=== PATIENT | female | born 1995 | race African-American/Black ===

== ENCOUNTER 2020-09-03 04:26 | Emergency (ER) | payer MEDICAID, SELFPAY ==
[2020-09-03 04:29] VITALS: BP 123/92; PULSE 77; RESP 18; TEMP 35.7; O2SAT 100
--- NOTE | 2020-09-03 05:05 | ED.FEMALEGU ---
HPI - Female Genitourinary General Chief complaint: Urogenital-Female Stated complaint: uti pain, 3rd week of period Time Seen by Provider: 09/03/20 04:42 History of Present Illness HPI Narrative: Dysuria, urinary frequency, lower abdominal pain for 6 days. Similar to past UTI symptoms. Tried AZO with temporary relief. Also says that she has been on her period for 3 weeks. Bleeding is light. No other symptoms. this is not unusual for her. Related Data Allergies Allergy/AdvReac Type Severity Reaction Status Date / Time No Known Allergies Allergy Mild Verified 09/03/20 04:31 Review of Systems Review of Systems: All systems reviewed & are unremarkable except as noted in HPI and below Constitutional: Constitutional: Denies chills and Denies fatigue Cardiovascular: Cardiovascular: Denies chest pain Respiratory: Respiratory: Denies dyspnea Gastrointestinal: Gastrointestinal: Reports abdominal pain, Denies constipation, Denies diarrhea, Denies nausea and Denies vomiting Genitourinary: Genitourinary: Reports abnormal vaginal bleeding, Denies hematuria, Reports nocturia, Reports dysuria, Reports flank pain and Denies urinary incontinence Neurologic: Denies numbness and Denies weakness [facility] Past Medical History Medical History Irregular periods Social History Social History Gender identity (if verbalized by the patient): Female Sexual Orientation (if Verbalized by the Patient): Straight or Heterosexual Exam Const: General: no acute distress Orientation/consciousness: patient oriented x3 HENMT: Head: normal to inspection Neck: Neck: normal visual inspection and no lymphadenopathy Chest: Chest palpation & inspection: no tenderness Resp: Effort & Inspection: normal respiratory effort Auscultation: clear to auscultation bilaterally, no rales, no rhonchi and no wheezes Cardio: Jugular venous distension: no JVD Rate: regular rate Rhythm: regular rhythm Heart sounds: no murmurs GI: Inspection: non-distended GI Palp: Yes Soft to palpation and No Tenderness to palpation present (GI) : General: Yes no CVA tenderness Skin: General skin exam: normal color Neuro: General: patient oriented x3 and moves all extremities Speech: normal speech Gait exam (Neuro): Normal gait present Extrem: General: normal to inspection Psych: Appearance: well kempt Affect: normal affect Course Vital Signs Vital signs: Vital Signs Temperature 35.7 C L 09/03/20 04:29 Pulse Rate 77 09/03/20 04:29 Respiratory Rate 18 09/03/20 04:29 Blood Pressure 123/92 H 09/03/20 04:29 Pulse Oximetry 100 09/03/20 04:29 Temperature 35.7 C L 09/03/20 04:29 Pulse Rate 77 09/03/20 04:29 Respiratory Rate 18 09/03/20 04:29 Blood Pressure 123/92 H 09/03/20 04:29 Pulse Oximetry 100 09/03/20 04:29 MDM - Female Genitourinary Differential Diagnosis Differential diagnosis: Likely urinary tract infection Medical Records Attestation: I reviewed the patient's medical records. Lab Data Attestation: I reviewed the patient's lab results. Labs: Lab Results 09/03/20 Range/Units 04:43 Urine Color Yellow (Yellow) Urine Appearance Cloudy H (Clear) Urine pH 7.0 (5.0-9.0) Ur Specific [place] 1.021 (1.001-1.035) Urine Protein 2+ H (Negative) mg/dL Urine Glucose (UA) Negative (Negative) mg/dL Urine Ketones Negative (Negative) mg/dL Ur Blood (Man) 3+ H (Negative) Urine Nitrate Negative (Negative) Urine Bilirubin Negative (Negative) Urine Urobilinogen 2.0 H (<2.0) mg/dL Leukocyte Esterase Rfl 3+ H (Negative) ANA/UL Urine RBC >75 H (0-2) /hpf Urine WBC >75 H /hpf Urine WBC Clumps Present H (None) /HPF Ur Squamous Epith Cells Many H (Few) /hpf Urine Bacteria Trace /hpf Urine Mucus Rare /lpf UCG Bedside Result Negative
[2020-09-03 05:14] LABS: Add Urine Microscopic? YES; Appearance Urine Cloudy (Clear); Bacteria Urine Trace /hpf; Bilirubin Urine Negative (Negative); Blood Urine 3+ (Negative); Color Urine Yellow (Yellow); Glucose Urine UA Negative (Negative); Ketones Urine Negative (Negative); Leukocyte Esterase Ur 3+ LEU/UL (Negative); Mucus Urine Rare /lpf; Nitrate Urine Negative (Negative); Protein Urine 2+ mg/dL (Negative); RBC Urine >75 /hpf (0-2); Specific Grav Ur 1.021 (1.001-1.035); Squamous Epithelial Cell Urine Many /hpf (Few); WBC Clumps Urine Present /HPF; WBC Urine >75 /hpf
[2020-09-03 05:55] VITALS: BP 124/78; PULSE 72; RESP 18; TEMP 36.7; O2SAT 98
[2020-09-03] MEDS: PHENAZOPYRIDINE HCL 100 MG TABLET 200 MG PO (05:55)
[2020-09-03] MEDS: NITROFURANTOIN MONOHYD MACROCR 100 MG CAP PO (05:55)
== END 2020-09-03 05:56 | disposition home or self-care (01) ==
PROVIDERS: Emergency Provider Emergency Medicine
DX: N39.0 Urinary tract infection, site not specified (principal)
CPT/HCPCS: 81001; 81025; 87077; 87086; 87088; 87186; 99283; A9270

== ENCOUNTER 2022-05-29 15:08 | Outpatient (RCR) | payer OTHER, SELFPAY ==
[2022-05-29 16:11] VITALS: BP 107/64; PULSE 96
== END 2022-08-27 23:59 | disposition home or self-care (01) ==
LOC: ANHOBOP 15:08
PROVIDERS: Visit Provider Obstetrics & Gynecology
DX: O36.8130 Decreased fetal movements, third trimester, not applicable or unspecified (principal); Z3A.37 37 weeks gestation of pregnancy
CPT/HCPCS: 59025

== ENCOUNTER 2022-06-22 09:15 | Inpatient (IN) | payer OTHER, SELFPAY ==
[2022-06-22] VITALS (77 sets, daily range): BP systolic 80–142; BP diastolic 43–106; PULSE 80–113; RESP 16; TEMP 36.1–36.9; O2SAT 85–100; BMI 44.9
[2022-06-22 10:11] LABS: Basophils Absolute Auto 0.1 K/mm3 (0.0-0.1); Basophils Percent Auto 0.9 % (0.2-1.2); Eosinophils Absolute Auto 0.1 K/mm3 (0-0.3); Hemoglobin 11.9 g/dL (12.0-15.0); Immature Granulocyte Absolute 0.03 K/mm3 (0.00-0.031); Immature Granulocyte Percent A 0.3 % (0-0.5); Lymphocytes Absolute Auto 2.23 K/mm3 (0.9-3.2); Lymphocytes Percent Auto 24.5 % (18.3-44.2); Mean Corpuscular HGB Conc 33.1 g/dl (32-36); Mean Corpuscular Hemoglobin 28.7 pg (26-34); Mean Corpuscular Volume 86.7 fl (80-100); Mean Platelet Volume 11.3 fl (7.4-10.4); Monocytes Absolute Auto 0.8 K/mm3 (0.1-0.6); Monocytes Percent Auto 8.4 % (2.6-8.5); Neutrophils Absolute Auto 5.9 K/mm3 (1.3-6.7); Neutrophils Percent Auto 64.9 % (45.5-73.1); Platelet Count Result 254 k/mm3 (150-375); Red Blood Count 4.15 M/mm3 (4.2-5.4); Red Cell Distribution Width 14.1 % (11.5-14.5); White Blood Count 9.1 K/mm3 (4.5-10.0)
[2022-06-22] MEDS: LACTATED RINGERS 1,000 ML 125 ML IV CONT ×4 (10:13→23:12)
[2022-06-22] MEDS: AMPICILLIN 2 GM/NS 100 ML 2 GM/100 ML BAG IVPB (10:14)
[2022-06-22] MEDS: OXYTOCIN 30 UNITS/NS 500 ML 30 UNITS/500 ML BAG 6 UNITS IV CONT (10:14)
--- NOTE | 2022-06-22 10:29 | PM.IMHP ---
H&P: HPI History of Present Illness Date/Time: 06/22/22 10:29 Chief Complaint: Postdates for induction of labor with positive group B strep Narrative: this is a 26-year-old 1 para 0 whose last menstrual period was , EDC 06/14/2022, presents at 41 weeks gestation for induction of labor. She is positive group B strep. She is admitted for induction secondary to post dates. The has otherwise been complicated PMFSH Past Medical History Medical History Irregular periods Family History Family History Grandparent Diabetes mellitus Hypertension Cerebrovascular accident Grandparent Hypertension Father Diabetes mellitus Social History Social History Substance use: never Gender identity (if verbalized by the patient): Female Sexual Orientation (if Verbalized by the Patient): Straight or Heterosexual Spiritual care concerns: No Meds Home Medications and Allergies Home Medications Medication Instructions Recorded Confirmed Type prenat.vits,shona,[id number] 1 tablet PO DAILY 05/18/22 05/18/22 History Allergies Allergy/AdvReac Type Severity Reaction Status Date / Time No Known Allergies Allergy Mild Verified 09/03/20 04:31 Vital Signs Vital Signs - 24 hr 06/22/22 09:40 06/22/22 09:45 Pulse Rate 97 102 H Blood Pressure 120/66 125/73 Exam Const: General: cooperative, healthy appearing and comfortable Nutritional Appearance: average body habitus Orientation/consciousness: oriented to person, oriented to place and oriented to time Limitations: no limitations Chest: Chest palpation & inspection: normal inspection of the chest Resp: Effort & Inspection: normal respiratory effort Cardio: Rate: regular rate Rhythm: regular rhythm Heart sounds: S1 normal heart sound present and S2 normal heart sound present GI: Inspection: normal to inspection : External Female Exam: normal external appearance Speculum Exam - Vagina: normal appearance of the vagina Speculum Exam - Cervix: normal appearance of the cervix ( cervix 1/50%. FHTs reassuring) Bimanual exam- vagina & uterus: enlarged H&P: Results Labs Labs: Short CBC 06/22/22 Range/Units 09:53 WBC 9.1 (4.5-10.0) K/mm3 Hgb 11.9 L (12.0-15.0) g/dL Hct 36.0 L (37.0-47.0) % Plt Count 254 (150-375) k/mm3 Assessment and Plan Assessment and plan (1) Post-dates : Code(s): O48.0 - Post-term Status: Acute (2) Group beta Strep positive: Code(s): B95.1 - Streptococcus, group B, as the cause of diseases classified elsewhere Status: Acute Plan medical induction of labor. Group B strep prophylaxis. Spontaneous vaginal delivery is expected. She is an epidural candidate
[2022-06-22 10:32] LABS: Amphetamine Screen Urine Negative (Negative); Barbiturate Screen Urine Negative (Negative); Benzodiazepines Screen Urine Negative (Negative); Cannabinoid Screen Urine Positive (Negative); Cocaine Screen Urine Negative (Negative); Methadone Screen Urine Negative (Negative); Opiate Screen Urine Negative (Negative); Phencyclidine Screen Urine Negative (Negative)
--- NOTE | 2022-06-22 11:44 | PM.OBPNLAB ---
Pain Control Date/time seen: 06/22/22 11:44 Pain control: tolerating well Pelvic Exam Dilation (cm): 2 Effacement (%): 75 station: -1 Amniotic membrane status: Ruptured Comments: iupc and fse applied
--- NOTE | 2022-06-22 12:36 | WPDANESEPP ---
Anes - Eval Pre Procedure Procedure: Labor epidural Date/Time: 06/22/22 12:36 Surgeon: Colin Guardado Preop Diagnosis: Pain during labor Pre Op Diagnosis: iol Patient Data Age: 26 Gender: F Height: 1.7 m Weight: 130 kg Last Vital Signs Temp 36.1 C L 06/22/22 09:44 Pulse 98 06/22/22 12:31 BP 129/106 H 06/22/22 12:31 O2 Del Method Room Air 06/22/22 10:39 Allergies Allergy/AdvReac Type Severity Reaction Status Date / Time No Known Allergies Allergy Mild Verified 09/03/20 04:31 Home Medications Medication Instructions Recorded Confirmed Type prenat.vits,shona,ryl-[id number] 1 tablet PO DAILY 05/18/22 05/18/22 History Laboratory Tests 06/22/22 06/22/22 06/22/22 09:53 09:53 09:53 WBC 9.1 K/mm3 K/mm3 (4.5-10.0) RBC 4.15 M/mm3 L M/mm3 (4.2-5.4) Hgb 11.9 g/dL L g/dL (12.0-15.0) Hct 36.0 % L % (37.0-47.0) MCV 86.7 fl fl (80-100) MCH 28.7 pg pg (26-34) MCHC 33.1 g/dl g/dl (32-36) RDW 14.1 % % (11.5-14.5) Plt Count 254 k/mm3 k/mm3 (150-375) MPV 11.3 fl H fl (7.4-10.4) Immature Gran % (Auto) 0.3 % % (0-0.5) Neut % (Auto) 64.9 % % (45.5-73.1) Lymph % (Auto) 24.5 % % (18.3-44.2) [place] % (Auto) 8.4 % % (2.6-8.5) Eos % (Auto) 1.0 % % (0-4.4) Baso % (Auto) 0.9 % % (0.2-1.2) Lymph # (Auto) 2.23 K/mm3 K/mm3 (0.9-3.2) [place] # (Auto) 0.8 K/mm3 H K/mm3 (0.1-0.6) Eos # (Auto) 0.1 K/mm3 K/mm3 (0-0.3) Baso # (Auto) 0.1 K/mm3 K/mm3 (0.0-0.1) Abs Immat Gran (auto) 0.03 K/mm3 K/mm3 (0.00-0.031) Absolute Neuts (auto) 5.9 K/mm3 K/mm3 (1.3-6.7) Absolute Nucleated RBC 0.0 K/mm3 K/mm3 (0.0-0.012) Nucleated RBC % 0.0 % % (0.0-0.2) Urine Opiates Screen Urine Methadone Screen Ur Barbiturates Screen Ur Phencyclidine Scrn Ur Amphetamine Screen U Benzodiazepines Scrn Urine Cocaine Screen U Cannabinoids Screen RPR Pending Blood Type O Positive Antibody Screen Negative 06/22/22 09:58 WBC RBC Hgb Hct MCV MCH MCHC RDW Plt Count MPV Immature Gran % (Auto) Neut % (Auto) Lymph % (Auto) [place] % (Auto) Eos % (Auto) Baso % (Auto) Lymph # (Auto) [place] # (Auto) Eos # (Auto) Baso # (Auto) Abs Immat Gran (auto) Absolute Neuts (auto) Absolute Nucleated RBC Nucleated RBC % Urine Opiates Screen Negative (Negative) Urine Methadone Screen Negative (Negative) Ur Barbiturates Screen Negative (Negative) Ur Phencyclidine Scrn Negative (Negative) Ur Amphetamine Screen Negative (Negative) U Benzodiazepines Scrn Negative (Negative) Urine Cocaine Screen Negative (Negative) U Cannabinoids Screen Positive A (Negative) RPR Blood Type Antibody Screen Patient hx anesthesia problems: none Family hx anesthesia problems: none Results Review: All pre-operative results and documents have been reviewed as part of the pre-operative evaluation. [facility] Past Medical History Medical History Irregular periods Family History Family History Grandparent Diabetes mellitus Hypertension Cerebrovascular accident Grandparent Hypertension Father Diabetes mellitus Social History Social History Smoking status: Never smoker Second hand tobacco smoke exposure: No Substance use: never Gender identity (if verbalized by the patient): Fem
[2022-06-22] MEDS: AMPICILLIN 1 GM/NS 50 ML 1 GM/50 ML BAG IVPB ×3 (14:00→22:13)
--- NOTE | 2022-06-22 16:08 | PM.OBPNLAB ---
Pain Control Date/time seen: 06/22/22 16:08 Pain control: tolerating well Pelvic Exam Dilation (cm): 3 Effacement (%): 75 station: -1 Amniotic membrane status: Ruptured
[2022-06-22] MEDS: SODIUM CHLORIDE 0.9% IV 300 ML 600 ML I-UTERINE (16:38)
[2022-06-23] VITALS (173 sets, daily range): BP systolic 78–134; BP diastolic 44–110; PULSE 92–124; RESP 15–30; TEMP 36.3–37.1; O2SAT 92–100
[2022-06-23] MEDS: SODIUM CHLORIDE 0.9% IV 1,000 ML 150 ML I-UTERINE (00:56)
[2022-06-23] MEDS: diphenhydrAMINE HCl INJ 50 MG/ML VIAL 25 MG IV PUSH (01:17)
[2022-06-23] MEDS: AMPICILLIN 1 GM/NS 50 ML 1 GM/50 ML BAG IVPB ×3 (02:15→10:08)
[2022-06-23] MEDS: LACTATED RINGERS 1,000 ML 125 ML IV CONT (04:13)
--- NOTE | 2022-06-23 07:19 | PM.OBPNLAB ---
Pain Control Date/time seen: 06/23/22 07:19 Pelvic Exam Dilation (cm): 6 Effacement (%): 75 station: -1 Amniotic membrane status: Ruptured
[2022-06-23 07:21] LABS: Rapid Plasma Reagin Non-Reactive (NonReactive)
--- NOTE | 2022-06-23 10:47 | P.PNOB_ITS ---
Pain Control Date/time seen: 06/23/22 10:47 Pain control: tolerating well Comments: Cervix not changing. Variables continued to be present. Patient offered low- transverse section. Risks and benefits reviewed in full Pelvic Exam Dilation (cm): 6 Effacement (%): 75 station: -1 Amniotic membrane status: Ruptured
--- NOTE | 2022-06-23 11:04 | WPDANESEPPF ---
Anes - Initial Pre Proc Eval Procedure: Operation Date: 06/23/22 11:30 Proposed Procedures p Section - Aleksander Guardado MD Date/Time: 06/23/22 11:04 Surgeon: Aleksander Guardado MD Pre Op Diagnosis: iol Patient Data Age: 26 Gender: F Height: 1.7 m Weight: 130 kg Last Vital Signs Temp 97.9 F 06/23/22 09:00 Pulse 95 06/23/22 07:30 Resp 16 06/23/22 06:00 BP 128/88 06/23/22 07:30 Pulse Ox 100 06/23/22 10:05 O2 Del Method Room Air 06/22/22 10:39 Allergies Allergy/AdvReac Type Severity Reaction Status Date / Time No Known Allergies Allergy Mild Verified 09/03/20 04:31 Home Medications Medication Instructions Recorded Confirmed Type prenat.vits,shona,oaa-wcgt-uvman 1 tablet PO DAILY 05/18/22 05/18/22 History hydrocodone 5 mg-acetaminophen 325 1 tablet PO Q4H PRN pain #30 tabs 06/24/22 Rx mg tablet Laboratory Tests 06/22/22 06/22/22 09:53 09:53 RPR Non-reactive (NonReactive) Antibody Screen Negative Patient hx anesthesia problems: none Family hx anesthesia problems: none Results Review: All pre-operative results and documents have been reviewed as part of the pre-operative evaluation. [facility] Past Medical History Medical History Irregular periods Family History Family History Grandparent Diabetes mellitus Hypertension Cerebrovascular accident Grandparent Hypertension Father Diabetes mellitus Social History Social History Smoking status: Never smoker Second hand tobacco smoke exposure: No Substance use: never Gender identity (if verbalized by the patient): Female Sexual Orientation (if Verbalized by the Patient): Straight or Heterosexual Spiritual care concerns: No Anes - Eval Final PreProcedure Day of Procedure 06/23/22 11:04 Patient weight: morbidly obese Heart: regular rate and rhythm Lungs: clear to auscultation Airway: Mallampati scale class II Neurological: alert and oriented Last oral intake: >/= 8 hours ASA classification: III Emergent: no Anesthetic plan: proceed Anesthesia type and monitoring: regional epidural (back up GA if needed; discussed with the patient) and standard monitoring Results Review: All pre-operative results and documents have been reviewed as part of the pre-operative evaluation. Informed Consent: The patient's anesthetic plan and its attendant risks and benefits were discussed with the patient/family/POA. Questions were solicited and answers provided to the satisfaction of the patient/family/POA.
--- NOTE | 2022-06-23 12:14 | W.PM.PROC2 ---
Procedure Note - Detailed Date of Procedure 06/23/22 Pre-op Diagnosis iol/postdates /failure to progress Post-op Diagnosis Same Procedure Performed Primary low-transverse section Surgeon Aleksander Guardado MD Anesthesia Spinal Indications This is a 26-year-old female at 41 and half weeks gestation with failed induction. She got to 6cm and despite adequate contractions shown by intrauterine pressure catheter she did not change beyond 6 and had variable and late decelerations. Findings Male infant 7lb 4oz Apgars 7 and 9 at 1 and 5minutes respectively. Normal-appearing uterus ovaries and tubes were seen. Description of Procedure Patient was prepped draped in normal sterile fashion placed in the supine position. Under excellent spinal anesthetic the abdomen was entered in Pfannenstiel fashion progressive layers to the fascia. Fascia incised midline carried in upward outward fashion bilaterally. Underlying muscles sharply dissected. Parietal peritoneum 0 by Marisol clamps and by sharp dissection carried superiorly and inferiorly down the bladder. Bladder blade placed bladder flap formed bladder blade returned. A low-transverse incision made the head delivered in CHRISTOPHER position. Anterior posterior shoulder delivered spontaneously. Cord clamped x2 and cut. Infant passed off the table with an excellent cry. Placenta delivered intact manually. Uterus delivered from abdomen wrapped in a moist towel. After assuring no membranes or debris remained in the uterus, the uterus was closed with continuous running 0 Vicryl from lateral edge to lateral edge followed by a 2nd imbricating running locking Vicryl from lateral edge to edge. Hemostasis was assured. Ovaries and tubes appeared within normal limits the laps removed and accounted for the fascia was inspected. The uterine incision was packed and 1 last time before the fascia was closed and lap counts were normal. The fascia closed with continuous running 0 Vicryl from lateral edge to midline bilaterally. Irrigation subcutaneous layer and the skin closed with 4 Monocryl and glue. Patient went to recovery in satisfactory condition. All sponge, needle, instrument counts were correct. There were no immediate complications noted Estimated Blood Loss 450 Drains No Packing No Pathology None sent Complications No immediate complications Condition Stable Disposition PACU
[2022-06-23] MEDS: fentaNYL CITRATE INJ (*CRX) 100 MCG/2 ML VIAL 50 MCG IV PUSH (13:25)
--- NOTE | 2022-06-23 14:40 | OBPPTRN ---
Patient transferred to post room #291 via stretcher. Support person present. Oriented to unit, room, information board, rooming in, admission packet and security measures. Patient verbalizes understanding.
--- NOTE | 2022-06-23 15:00 | PC.NURSE ---
Breast pump provided due to maternal preference. Instructions given on cleaning, care, usage, that there should be no pain, pumping schedule for milk production, collection, and storage of human milk. Patient was assessed for correct placement, flange size, to pump for comfort and nipple stretching/stimulation for adequate milk production every 3 hours (8 times in 24 hours). Mother voiced understanding of the education shared along with mom and baby guide for additional resource information.
[2022-06-23] MEDS: KETOROLAC 30 MG/ML VIAL (*BKC) IV PUSH (15:27)
[2022-06-23] MEDS: DEXTROSE 5%/0.45% SOD CHL 1,000 ML 125 ML IV CONT (17:19)
[2022-06-23] MEDS: HYDROcodone/acetaminophen (*CRX) 5-325 MG TABLET 1 TAB PO ×2 (18:44→23:01)
[2022-06-23] MEDS: IBUPROFEN 600 MG TABLET PO (21:40)
[2022-06-23] MEDS: LANOLIN (LANSINOH) 7.5 GM CREAM 2 APPLIC (21:40)
[2022-06-24] MEDS: HYDROcodone/acetaminophen (*CRX) 5-325 MG TABLET 1 TAB PO ×5 (03:05→20:45)
[2022-06-24 03:15] VITALS: BP 127/88; PULSE 104; RESP 18; TEMP 37.1; O2SAT 97
[2022-06-24 04:19] LABS: Basophils Absolute Auto 0.1 K/mm3 (0.0-0.1); Basophils Percent Auto 0.5 % (0.2-1.2); Eosinophils Absolute Auto 0.1 K/mm3 (0-0.3); Eosinophils Percent Auto 0.5 % (0-4.4); Hematocrit 34.6 % (37.0-47.0); Hemoglobin 11.1 g/dL (12.0-15.0); Immature Granulocyte Absolute 0.05 K/mm3 (0.00-0.031); Immature Granulocyte Percent A 0.3 % (0-0.5); Lymphocytes Percent Auto 14.8 % (18.3-44.2); Mean Corpuscular HGB Conc 32.1 g/dl (32-36); Mean Corpuscular Hemoglobin 28.5 pg (26-34); Mean Corpuscular Volume 88.9 fl (80-100); Mean Platelet Volume 11.4 fl (7.4-10.4); Monocytes Absolute Auto 1.3 K/mm3 (0.1-0.6); Monocytes Percent Auto 8.7 % (2.6-8.5); Neutrophils Absolute Auto 11.2 K/mm3 (1.3-6.7); Neutrophils Percent Auto 75.2 % (45.5-73.1); Platelet Count Result 245 k/mm3 (150-375); Red Blood Count 3.89 M/mm3 (4.2-5.4); Red Cell Distribution Width 14.4 % (11.5-14.5); White Blood Count 14.9 K/mm3 (4.5-10.0)
--- NOTE | 2022-06-24 05:14 | P.PNOB_ITS ---
OB - PN: Subj Subjective Date/time seen: 06/24/22 05:14 Patient comments: no complaints and pain well controlled baby status: doing well and nursing well OB - PN: Obj Data Labs CBC & Chem 7: 06/24/22 03:11 Labs: Laboratory Results - last 24 hr 06/22/22 06/24/22 09:53 03:11 WBC 14.9 H RBC 3.89 L Hgb 11.1 L Hct 34.6 L MCV 88.9 MCH 28.5 MCHC 32.1 RDW 14.4 Plt Count 245 MPV 11.4 H Immature Gran % (Auto) 0.3 Neut % (Auto) 75.2 H Lymph % (Auto) 14.8 L [place] % (Auto) 8.7 H Eos % (Auto) 0.5 Baso % (Auto) 0.5 Lymph # (Auto) 2.20 [place] # (Auto) 1.3 H Eos # (Auto) 0.1 Baso # (Auto) 0.1 Abs Immat Gran (auto) 0.05 H Absolute Neuts (auto) 11.2 H Absolute Nucleated RBC 0.0 Nucleated RBC % 0.0 RPR Non-reactive OB - PN A/P Plan day: 1 Plan: routine care Time Spent With Patient Time: Total time spent is greater than 50% in coordination of care (as documented) at patient's floor/unit and/or counseling patient: Time with patient: less than 15 minutes Exam Const: General: cooperative, healthy appearing and comfortable GI: Inspection: normal to inspection, incision (Clean dry and intact) and obesity Auscultation: normal bowel sounds : Speculum Exam - Cervix: Other cervical findings present ( bleeding light)
--- NOTE | 2022-06-24 05:15 | PM.DS ---
DS: Admitting Diagnosis Discharge Date 06/25/2022 Admitting Diagnosis postdates /positive group B strep DS: Discharge Diagnosis Discharge Diagnosis (1) Group beta Strep positive: Code(s): B95.1 - Streptococcus, group B, as the cause of diseases classified elsewhere Status: Acute (2) Post-dates : Code(s): O48.0 - Post-term Status: Acute DS: Summary Hospital Course Reason for hospitalization: patient was admitted for induction of labor at 41 and half weeks gestation Hospital Course: she underwent unsuccessful medical induction of labor. She was adequately Diaz prophylaxed for group B strep. She underwent low-transverse section 06/23/2022. Her 48hour course was unremarkable. She remained afebrile. She was up, voiding without difficulty, ambulating, eating regular diet, and generally without complaints. Time Spent with Patient Time attestation: Total time spent providing and/or coordinating discharge services: DS: Data Data Completed and Pending Labs on day of discharge: Labs from last 24 hours 06/24/22 06/22/22 03:11 09:53 WBC 14.9 H RBC 3.89 L Hgb 11.1 L Hct 34.6 L MCV 88.9 MCH 28.5 MCHC 32.1 RDW 14.4 Plt Count 245 MPV 11.4 H Immature Gran % (Auto) 0.3 Neut % (Auto) 75.2 H Lymph % (Auto) 14.8 L [place] % (Auto) 8.7 H Eos % (Auto) 0.5 Baso % (Auto) 0.5 Lymph # (Auto) 2.20 [place] # (Auto) 1.3 H Eos # (Auto) 0.1 Baso # (Auto) 0.1 Abs Immat Gran (auto) 0.05 H Absolute Neuts (auto) 11.2 H Absolute Nucleated RBC 0.0 Nucleated RBC % 0.0 RPR Non-reactive Discharge Plan Discharge Attending physician on discharge: Aleksander Chambers Discharging Clinician: Aleksander Chambers Activity: may shower, no straining, may drive after 2 weeks and pelvic rest Diet: heart healthy Wound Care Instructions: follow printed instructions Follow-up/Referrals: Aleksander Chambers MD [Physician] - Discharge Medications: New hydrocodone-acetaminophen 5-325 mg tablet 1 tablet PO Q4H PRN (Reason: pain) Qty: 30 0RF No Action #2 Tablet 1 tablet PO DAILY Date of admission: 06/22/22 09:15 Primary Care Provider: PHYSICIAN,[employer] Admitting Provider: Aleksander Chambers Attending physician on admission: Aleksander Chambers Condition: Stable
[2022-06-24] MEDS: IBUPROFEN 600 MG TABLET PO ×2 (05:57→12:56)
[2022-06-24 06:56] VITALS: BP 124/81; PULSE 117; RESP 16; TEMP 36.7
[2022-06-24] MEDS: MULTIVIT/MIN/PREN/FOL AC/IRON TABLET 1 TAB PO (08:38)
[2022-06-24] MEDS: DOCUSATE SODIUM 100 MG CAPSULE PO ×2 (08:38→16:28)
[2022-06-24 08:40] VITALS: PULSE 107
--- NOTE | 2022-06-24 10:15 | WPDANLDNPN2 ---
Anes-Prog Note L&D-Neuraxial Date/Time: 06/24/22 10:15 Neuraxial medications: epidural PF morphine Opiod-related complaints: none Patient feedback: Patient satisfied with post-operative pain management.
--- NOTE | 2022-06-24 10:16 | WPDANESPN ---
Anes - Prog Note Post-Op Date/Time: 06/24/22 10:16 Cardiovascular status: normal Respiratory status: normal Airway patency: baseline Mental status: baseline Post-Op hydration status: normal Vital Signs: Last Vital Signs Temp 36.7 C 06/24/22 06:56 Pulse 117 H 06/24/22 06:56 Resp 16 06/24/22 06:56 BP 124/81 06/24/22 06:56 Pulse Ox 97 06/24/22 03:15 O2 Del Method Room Air 06/23/22 19:00 Pain Score (VAS): 0 I/O: Intake & Output 06/23/22 06/24/22 06/24/22 23:59 07:59 15:59 Intake Total 500 Output Total 450 400 Balance 50 -400 Laboratory Tests 06/24/22 03:11 06/24/22 03:11 WBC 14.9 H RBC 3.89 L Hgb 11.1 L Hct 34.6 L MCV 88.9 MCH 28.5 MCHC 32.1 RDW 14.4 Plt Count 245 MPV 11.4 H Immature Gran % (Auto) 0.3 Neut % (Auto) 75.2 H Lymph % (Auto) 14.8 L [place] % (Auto) 8.7 H Eos % (Auto) 0.5 Baso % (Auto) 0.5 Lymph # (Auto) 2.20 [place] # (Auto) 1.3 H Eos # (Auto) 0.1 Baso # (Auto) 0.1 Abs Immat Gran (auto) 0.05 H Absolute Neuts (auto) 11.2 H Absolute Nucleated RBC 0.0 Nucleated RBC % 0.0 Post-procedural complaints: none Patient Feedback: Patient satisfied with anesthetic care.
[2022-06-24 19:00] VITALS: BP 125/72; PULSE 104; RESP 18; TEMP 36.6; O2SAT 99
[2022-06-25] MEDS: diphenhydrAMINE HCl CAP 25 MG CAPSULE PO (00:09)
[2022-06-25] MEDS: HYDROcodone/acetaminophen (*CRX) 5-325 MG TABLET 1 TAB PO ×3 (00:10→11:25)
[2022-06-25] MEDS: MULTIVIT/MIN/PREN/FOL AC/IRON TABLET 1 TAB PO (06:45)
[2022-06-25] MEDS: DOCUSATE SODIUM 100 MG CAPSULE PO (06:46)
[2022-06-25] MEDS: IBUPROFEN 600 MG TABLET PO (06:46)
[2022-06-25 07:55] VITALS: BP 132/72; PULSE 112; RESP 16; TEMP 35.9; O2SAT 99
--- NOTE | 2022-06-25 08:35 | PM.OBPNVD ---
OB - PN: Subj Subjective Date/time seen: 06/25/22 08:35 Patient comments: no complaints and pain well controlled baby status: doing well and nursing well OB - PN: Obj Data Labs CBC & Chem 7: 06/24/22 03:11 OB - PN A/P Plan day: 2 Plan: routine care, discharge home and follow up 6 weeks (4) Time Spent With Patient Time: Total time spent is greater than 50% in coordination of care (as documented) at patient's floor/unit and/or counseling patient: Time with patient: less than 15 minutes Exam Const: General: cooperative, healthy appearing and comfortable Chest: Chest palpation & inspection: normal inspection of the chest Resp: Effort & Inspection: normal respiratory effort GI: Inspection: normal to inspection and incision ( clean dry and intact)
[2022-06-25] MEDS: MEASLES,MUMPS,RUBELLA VACCINE 0.5 ML VIAL SUB-Q (09:46)
[2022-06-25] MEDS: TETANUS,DIPHTHERIA,AC PERTUSSIS ADULT (0.5 ML) BOOSTRIX IM (09:47)
[2022-06-26 14:18] VITALS: BP 135/86; PULSE 99; RESP 20; TEMP 37.2; O2SAT 100
== END 2022-06-25 11:30 | disposition home or self-care (01) | DRG 540 ==
LOC: ANHLDR 09:18 → ANHOB2 06-23 14:51
PROVIDERS: Admitting Provider Obstetrics & Gynecology; Visit Provider Obstetrics & Gynecology
PROC: 10D00Z1 Extraction of Products of Conception, Low, Open Approach (ICD-10-PCS; CPT 59514; principal; 2022-06-23 11:30)
DX: O48.0 Post-term pregnancy (principal); E66.01 Morbid (severe) obesity due to excess calories; O62.0 Primary inadequate contractions; Z3A.41 41 weeks gestation of pregnancy; O99.824 Streptococcus B carrier state complicating childbirth; O76 Abnormality in fetal heart rate and rhythm complicating labor and delivery; O99.214 Obesity complicating childbirth; Z37.0 Single live birth
CPT/HCPCS: 36415; 80307; 85025; 86592; 86850; 86900; 86901; 90710; 90715; A9270; J0131; J0290; J0456; J1200; J1885; J2274; J2370; J2590; J2795; J3010; J7030; J7120

== ENCOUNTER 2022-10-04 18:09 | Emergency (ER) | payer OTHER, SELFPAY ==
[2022-10-04 18:11] VITALS: BP 153/81; PULSE 103; RESP 20; TEMP 36.8; O2SAT 100
--- NOTE | 2022-10-04 18:18 | ED.UPPEXIN ---
HPI - Extremity Injury (Upper) General Chief Complaint: Upper Respiratory Infection Stated Complaint: throat and ear pain Time Seen by Provider: 10/04/22 18:14 History of Present Illness HPI narrative: 26-year-old female presents to the emergency room for evaluation of sore throat and ear fullness. States has been experiencing symptoms for 5 days. Was seen at an outside urgent care where she was found to be negative for COVID, flu, strep. Patient was told to take Tylenol and ibuprofen at that time. States symptoms have not improved. Denies fevers. Related Data Home Medications Medication Instructions Recorded Confirmed prenat.vits,shona,[id number] 1 tablet PO DAILY 05/18/22 05/18/22 Allergies Allergy/AdvReac Type Severity Reaction Status Date / Time No Known Allergies Allergy Mild Verified 09/03/20 04:31 Review of Systems Review of Systems: CONSTITUTIONAL: Denies fever, chills, or sweats. EYES: Denies visual changes, redness, or discharge. ENT: Reports sore throat and otalgia CARDIOVASCULAR: Denies chest pain, palpitations, or edema. RESPIRATORY: Denies cough or dyspnea. GASTROINTESTINAL: Denies abdominal pain, nausea, vomiting, or diarrhea. GENITOURINARY: Denies dysuria or hematuria. SKIN: Denies rash or itching. MUSCULOSKELETAL: Denies back pain, joint pain, or myalgia. NEUROLOGIC: Denies headache, numbness, dizziness, or weakness. PSYCHIATRIC: Denies anxiety or depression. [facility] Past Medical History Medical History Irregular periods Family History Family History Grandparent Diabetes mellitus Hypertension Cerebrovascular accident Grandparent Hypertension Father Diabetes mellitus Social History Social History Smoking status: Never smoker Second hand tobacco smoke exposure: No Substance use: never Gender identity (if verbalized by the patient): Female Sexual Orientation (if Verbalized by the Patient): Straight or Heterosexual Spiritual care concerns: No Exam Narrative: GENERAL: Well-appearing, well-nourished, no physical limitations, and in no acute distress. HEAD: Normocephalic, atraumatic. EYES: Conjunctivae normal, PERRLA and EOMI. ENT: External nose normal, Nares clear, no rhinorrhea or epistaxis. Mucous membranes moist. Oropharynx with tonsillar hypertrophy and exudate. External ears normal, cerumen impaction bilaterally NECK: Supple. No meningeal signs. No adenopathy or masses. No carotid bruits or JVD CHEST: Clear to auscultation. No respiratory distress. No wheezes rales or rhonchi. No tenderness. HEART: Regular rate and rhythm. No murmur heard. Normal peripheral pulses. EXTREMITIES: Normal range of motion. No edema. No clubbing or cyanosis SKIN: Warm, dry, no rash. No noted wounds NEURO: No focal deficits. Alert and oriented x3. MAEW. CN's II-XI intact bilaterally, normal gait PSYCH: Cooperative. Normal mood and affect. Course Vital Signs Vital signs: Vital Signs Temperature 36.8 C 10/04/22 18:11 Pulse Rate 103 H 10/04/22 18:11 Respiratory Rate 20 10/04/22 18:11 Blood Pressure 153/81 H 10/04/22 18:11 Pulse Oximetry 100 10/04/22 18:11 Oxygen Delivery Room Air 10/04/22 18:11 Temperature 36.8 C 10/04/22 18:11 Pulse Rate 103 H 10/04/22 18:11 Respiratory Rate 20 10/04/22 18:11 Blood Pressure 153/81 H 10/04/22 18:11 Pulse Oximetry 100 10/04/22 18:11 Oxygen Delivery Room Air 10/04/22 18:11 MDM - Extremity Injury (Upper) Lab Data Labs: Lab Results 10/04/22 10/04/22 10/04/22 Range/Units 18:19 18:19 18:19 Monoscreen Positive A (Negative) Group A Strep (PCR) Not detected (Negative) Grp A Beta Strep Ag Cancelled Discharge Plan Discharge Clinical Impression: CMV mononucleosis Patient Disposition: Home, Self-Care Cond
[2022-10-04 19:01] LABS: Monoscreen Positive (Negative); Negative Monotest Control Negative (Negative); Positive Monotest Control Positive (Positive)
[2022-10-04 19:02] LABS: Strep Group A RT-PCR NOT DETECTED (Negative)
== END 2022-10-04 19:14 | disposition home or self-care (01) ==
PROVIDERS: Emergency Provider Nurse Practitioner Family
DX: B27.10 Cytomegaloviral mononucleosis without complications (principal)
CPT/HCPCS: 86308; 87651; 96372; 99283; J1100

== ENCOUNTER 2023-03-13 11:52 | Emergency (ER) | payer OTHER, SELFPAY ==
[2023-03-13 12:02] VITALS: BP 140/85; PULSE 108; RESP 20; TEMP 36.9; O2SAT 99
[2023-03-13 12:28] LABS: Appearance Urine Clear (Clear); Bacteria Urine None Seen /hpf; Bilirubin Urine Negative (Negative); Blood Urine Trace (Negative); Color Urine Yellow (Yellow); Glucose Urine UA Negative (Negative); Ketones Urine Negative (Negative); Leukocyte Esterase Ur Trace LEU/UL (Negative); Nitrate Urine Negative (Negative); Non Pathogenic Casts 0-2; Protein Urine Negative (Negative); RBC Urine 0-2 /hpf (0-2); Specific Grav Ur 1.013 (1.001-1.035); Squamous Epithelial Cell Urine Occasional /hpf (Few)
[2023-03-13 12:31] LABS: Add Urine Microscopic? YES
--- NOTE | 2023-03-13 12:45 | ED.URI ---
HPI - URI/Sore Throat General Chief Complaint: Upper Respiratory Infection Stated Complaint: fever/chills, sore throat Time Seen by Provider: 03/13/23 12:18 History of Present Illness HPI Narrative: 27-year-old female reports for evaluation of a sore throat, bilateral ear itchiness and nasal congestion since yesterday. Patient states symptoms started with an itchy throat and ears and progressed to nasal congestion and sore throat today. She reports a fever of 100.9 this morning but has since taking ibuprofen with resolution of fever. She is also complaining of chills. Denies abdominal pain, nausea or vomiting, chest pain or shortness of breath, diarrhea, cough. States her ears are no longer painful or itchy. Related Data Home Medications Medication Instructions Recorded Confirmed prenat.vits,shona,[id number] 1 tablet PO DAILY 05/18/22 05/18/22 Allergies Allergy/AdvReac Type Severity Reaction Status Date / Time No Known Allergies Allergy Mild Verified 03/13/23 12:13 Review of Systems Review of Systems: CONSTITUTIONAL: Denies fever, chills EYES: Denies visual changes, redness, or discharge. ENT: See HPI CARDIOVASCULAR: Denies chest pain, palpitations, or edema. RESPIRATORY: Denies cough or dyspnea. GASTROINTESTINAL: Denies abdominal pain, nausea, vomiting, or diarrhea. GENITOURINARY: Denies dysuria or hematuria. SKIN: Denies rash or itching. MUSCULOSKELETAL: Denies back pain, joint pain, or myalgia. NEUROLOGIC: Denies headache, numbness, dizziness, or weakness. PSYCHIATRIC: Denies anxiety or depression. [facility] Past Medical History Medical History Irregular periods Family History Family History Grandparent Diabetes mellitus Hypertension Cerebrovascular accident Grandparent Hypertension Father Diabetes mellitus Social History Social History Smoking status: Never smoker Second hand tobacco smoke exposure: No Substance use: never Gender identity (if verbalized by the patient): Female Sexual Orientation (if Verbalized by the Patient): Straight or Heterosexual Spiritual care concerns: No Exam Narrative: GENERAL: Well-appearing, in no acute distress. HEAD: Normocephalic EYES: PERRLA ENT: Mucous membranes moist. Nose congested. No frontal or maxillary sinus tenderness. Bilateral tonsils erythematous, edematous with exudates. No uvular deviation. No kissing tonsils or respiratory compromise. Normal uvula. Bilateral cerumen impaction. No pain with movement of auricles, no mastoid tenderness. NECK: Supple. CHEST: No respiratory distress. Clear to auscultation, no adventitious breath sounds. HEART: Regular rate and rhythm. No murmur heard. Normal peripheral pulses. ABDOMEN: Soft, nontender, normal active bowel sounds. EXTREMITIES: Normal range of motion. No edema. SKIN: Warm, dry, no rash. NEURO: No focal deficits. Alert and oriented x3. PSYCH: Normal mood and affect. Course Vital Signs Vital signs: Vital Signs Temperature 98.4 F 03/13/23 12:02 Pulse Rate 108 H 03/13/23 12:02 Respiratory Rate 20 03/13/23 12:02 Blood Pressure 140/85 03/13/23 12:02 Pulse Oximetry 99 03/13/23 12:02 Oxygen Delivery Room Air 03/13/23 12:02 Temperature 98.3 F 03/13/23 13:40 Pulse Rate 94 03/13/23 13:40 Respiratory Rate 16 03/13/23 13:40 Blood Pressure 132/78 03/13/23 13:40 Pulse Oximetry 100 03/13/23 13:40 Oxygen Delivery Room Air 03/13/23 12:02 MDM - URI/Sore Throat MDM Narrative Medical decision making narrative: 27-year-old female reports for evaluation of a sore throat, bilateral ear itchiness and nasal congestion since yesterday. Exam reveals nasal congestion, edematous and erythematous tonsils with exudates. Initial vitals reveal tachycardia 108, otherwise nor
[2023-03-13 12:46] LABS: Strep Group A RT-PCR DETECTED (Negative)
[2023-03-13 12:59] LABS: Influenza A QL RT-PCR Negative (Negative); Influenza B QL RT-PCR Negative (Negative); SARS-CoV-2 RNA PCR Negative (Negative)
[2023-03-13 13:40] VITALS: BP 132/78; PULSE 94; RESP 16; TEMP 36.8; O2SAT 100
== END 2023-03-13 13:43 | disposition home or self-care (01) ==
PROVIDERS: Emergency Medicine; Emergency Provider Physician Assistant
DX: J02.0 Streptococcal pharyngitis (principal); Z20.822 Contact with and (suspected) exposure to COVID-19
CPT/HCPCS: 81001; 81025; 87077; 87086; 87088; 87186; 87636; 87651; 99283

== ENCOUNTER 2023-05-29 18:25 | Emergency (ER) | payer OTHER, SELFPAY ==
--- NOTE | 2023-05-29 19:05 | PC.NURSE ---
Patient up to desk to notify this RN that she no longer wanted to be seen and that she may come back at a different time. Patient encouraged to stay but declined. Encouraged to return with any new or worsening sx. Ambulatory at the time of departure with a steady gait.
== END 2023-05-29 18:30 | disposition left against medical advice (07) ==
DX: Z53.21 Procedure and treatment not carried out due to patient leaving prior to being seen by health care provider (principal)
CPT/HCPCS: 99199

== ENCOUNTER 2023-05-31 11:00 | Emergency (ER) | payer OTHER, SELFPAY ==
--- NOTE | ~2023-05-31 | XR_ITS ---
EXAMINATION: XR chest 2V DATE: 05/31/2023 13:59 INDICATION: Cough. Throat pain. TECHNIQUE: Frontal and lateral views of the chest were obtained. COMPARISON: None. FINDINGS: There is no pneumonia, pleural effusion, or pneumothorax. The heart size is normal. There i s mild chronic anterior wedging of a midthoracic vertebral body. IMPRESSION: 1. No acute cardiopulmonary disease. Reviewed, dictated and finalized at location E.
[2023-05-31 11:17] VITALS: BP 141/83; PULSE 94; RESP 18; TEMP 37.1; O2SAT 100
[2023-05-31 12:01] VITALS: O2SAT 100
--- NOTE | 2023-05-31 13:15 | ED.URI ---
HPI - URI/Sore Throat General Chief Complaint: Upper Respiratory Infection Stated Complaint: Sore throat and bodyaches Time Seen by Provider: 05/31/23 13:14 History of Present Illness HPI Narrative: Patient is a 27-year-old female with no past medical history here today with URI like symptoms for the last 2 days. Patient endorses cough, productive with clear to green sputum. She is additionally having nasal congestion, sore throat, body aches. She states that she went into an urgent care yesterday where they tested her for strep throat which was negative. She notes that she additionally took a home COVID test which was negative. She does have a sick contact at home with her young child. She denies any fever, chills, chest pain, abdominal pain. Related Data Home Medications Medication Instructions Recorded Confirmed No Home Medications 05/31/23 05/31/23 Allergies Allergy/AdvReac Type Severity Reaction Status Date / Time No Known Allergies Allergy Mild Verified 05/31/23 11:01 Review of Systems Review of Systems: CONSTITUTIONAL: Denies fever, chills, or sweats. EYES: Denies visual changes, redness, or discharge. ENT: rhinorrhea, congestion, sore throat, no otalgia. CARDIOVASCULAR: Denies chest pain, palpitations, or edema. RESPIRATORY: cough, no dyspnea. GASTROINTESTINAL: Denies abdominal pain, nausea, vomiting, or diarrhea. GENITOURINARY: Denies dysuria or hematuria. SKIN: Denies rash or itching. MUSCULOSKELETAL: Denies back pain, joint pain. Myalgias. NEUROLOGIC: Denies headache, numbness, or weakness. PSYCHIATRIC: Denies anxiety or depression. [facility] Past Medical History Medical History Irregular periods Family History Family History Grandparent Diabetes mellitus Hypertension Cerebrovascular accident Grandparent Hypertension Father Diabetes mellitus Social History Social History Smoking status: Never smoker Second hand tobacco smoke exposure: No Substance use: never Gender identity (if verbalized by the patient): Female Sexual Orientation (if Verbalized by the Patient): Straight or Heterosexual Spiritual care concerns: No Exam Narrative: GENERAL: Well-appearing, well-nourished, and in no acute distress. HEAD: Normocephalic, atraumatic. EYES: PERRLA and EOMI. ENT: Nares clear. Mucous membranes moist. Erythematous posterior pharynx with no obvious peritonsillar abscess or uvular deviation. No exudates present. NECK: Supple. CHEST: Clear to auscultation. No respiratory distress. HEART: Regular rate and rhythm. Normal peripheral pulses. ABDOMEN: Soft, nontender, nondistended. EXTREMITIES: Normal range of motion. No edema. SKIN: Warm, dry, no rash. NEURO: No focal deficits. Alert and oriented x3. PSYCH: Normal mood and affect. Course Course Emergency Course: Chart review performed. Patient here with sore throat, cough, congestion, body aches. Last ED visit she was positive for group A strep in February 2023. Triage vitals grossly normal. Patient seen evaluated, in no acute distress. History and exam consistent with likely viral URI. Will retest for strep, COVID, influenza. Given productive nature of cough will do CXR to ensure no pneumonia present. CXR negative. COVID, Flu, Strep negative. Patient evaluated, feeling well at this time. The results of pertinent diagnostic studies and exam findings were discussed. The patient?s provisional diagnosis and plan of care were discussed with the patient and present family. The patient and/or present family expressed understanding of the diagnosis and plan. The nurse was instructed to provide written instructions and appropriate follow-up information. The patient understands their need and responsibility to obtain additional follow-up as instructed. The
[2023-05-31] MEDS: ACETAMINOPHEN 325 MG TABLET 650 MG PO (13:48)
[2023-05-31 14:40] VITALS: BP 125/77; PULSE 92; RESP 18; TEMP 36.8; O2SAT 98
[2023-05-31 15:16] LABS: Strep Group A RT-PCR NOT DETECTED (Negative)
[2023-05-31 15:25] LABS: Influenza A QL RT-PCR Negative (Negative); Influenza B QL RT-PCR Negative (Negative); SARS-CoV-2 RNA PCR Negative (Negative)
== END 2023-05-31 15:53 | disposition home or self-care (01) ==
PROVIDERS: Emergency Provider Student in an Organized Health Care Education/Training Program
DX: J06.9 Acute upper respiratory infection, unspecified (principal); Z20.822 Contact with and (suspected) exposure to COVID-19
CPT/HCPCS: 71046; 87636; 87651; 99283; A9270

== ENCOUNTER 2025-06-12 17:23 | Emergency (ER) | payer BC, SELFPAY ==
--- OUTSIDE RECORDS SUMMARY | 2025-06-12 17:25 | XMS_ITS | Clinical Summary ---
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 Gender Identity Not on file Sexual Orientation Not on file Plan of Treatment Health Maintenance Due Date Last Done Comments Hepatitis C Virus (HCV) Screening 1997 TdaP Immunization 1997 Hepatitis B Immunization (1 of 3 - 19+ 3-dose series) 2016 SARS-COV-2 Immunization ( - 2023- season) 2024 Human Papillomavirus (HPV) Immunization (1 - 3-dose SCDM series) 2024 Influenza Immunization (#1) 2025 Respiratory Syncytial Virus (RSV) Immunization (Adult) (1 - 1-dose 75+ series) 2072 Meningococcal Immunization (ACWY) Aged Out No longer eligible based on patient's age to complete this topic Pneumococcal Immunization Combined Aged Out No longer eligible based on patient's age to complete this topic Rotavirus Immunization Aged Out No lo nger eligible based on patient's age to complete this topic
--- OUTSIDE RECORDS SUMMARY | 2025-06-12 17:25 | XMS_ITS | Clinical Summary ---
Author Organization [facility] [address] Address [address] [place] [id number] Care Team Providers Care Flight Dispatcher Name Role Phone No, Physician Primary Care Provider [phone] Allergies No known active allergies Medications diclofenac DR (VOLTAREN) 75 mg EC tablet Take 1 tablet (75 mg total) by mouth 2 (two) times a day as needed for pain Take with food. Stop Ibuprofen. 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 Gender Identity Female 11/15/2024 2:01 PM GIS INSTRUCTOR Sexual Orientation Straight 11/15/2024 2: 01 PM GIS INSTRUCTOR Obstetrics History Last Filed Vital Signs Vital Sign Reading Time Taken Comments Blood Pressure 122/85 02/26/2024 11:19 AM CDT Pulse 100 02/26/2024 11:19 AM CDT Temperature 36.3 C (97.4 F) 02/26/2024 11:19 AM CDT Respiratory Rate 16 02/26/2024 11:19 AM CDT Oxygen Saturation 98% 02/26/2024 11:19 AM CDT Inhaled Oxygen Concentration - - Weight 122.5 kg (270 lb) 02/26/2024 11:19 AM CDT Height 170.2 cm (5' 7) 02/26/2024 11:19 AM CDT Body Mass Index 42.29 02/26/2024 11:19 AM CDT Plan of Treatment Health Maintenance Due Date Last Done Comments Cervical Cancer Screening 1997 Depression Screening 1997 Hepatitis C Screening 1997 Regular Well Visit/Exam 18-64 2015 DTaP/Tdap/Td Vaccine (7 - Td or Tdap) 05/05/2019 05/05/2009, 05/14/2003, 05/11/1999, Additional history exists HPV Vaccines (1 - 3-dose SCDM series) 2024 Covid-19 Vaccine ( season) 2025 01/19/2021, 12/22/2020 Influenza Vaccine (#1) 2025 Hepatitis B Screening Completed 05/05/1998 , 1997, 1997 Varicella Vaccines Completed 05/05/2009, 11/02/1998 Pneumococcal vaccine <65 Aged Out No longer eligible based on patient's age to complete this topic Insurance [id number] [place] [address] [facility] Care Teams Flight Dispatcher Relationship Specialty Start Date End Date No, Physician PCP - General 01/09/22
[2025-06-12 17:37] VITALS: BP 146/74; PULSE 105; RESP 16; TEMP 36.6; O2SAT 100
[2025-06-12 18:27] LABS: Strep Group A RT-PCR NOT DETECTED (Negative)
[2025-06-12 18:39] LABS: Influenza A QL RT-PCR Negative (Negative); Influenza B QL RT-PCR Negative (Negative); RSV RNA, RT-PCR Negative (Negative); SARS-CoV-2 RNA PCR Negative (Negative)
[2025-06-12 20:41] VITALS: BP 133/80; PULSE 101; RESP 18; TEMP 36.4; O2SAT 100
--- OUTSIDE RECORDS SUMMARY | 2025-06-12 21:45 | XMS_ITS | Clinical Summary ---
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
--- NOTE | 2025-06-12 21:56 | ED_ITS ---
HPI - Female Genitourinary General Chief complaint: Vaginal Bleeding Stated complaint: I think I need a strep test and vaginal bleeding Time Seen by Provider: 06/12/25 20:44 Source: patient Mode of arrival: ambulatory Limitations: no limitations History of Present Illness HPI Narrative: Patient is a 29-year-old female who presents the ED with report of URI symptoms and vaginal bleeding. Patient reports she has had upper respiratory symptoms for the past 1 week including cough, congestion, sore throat. States her child and sister have been sick with similar symptoms. Also reports having persistent vaginal bleeding for the past 2 months. States she has history of irregular cycles, does not currently have an OBGYN due to insurance issues. States bleeding has been intermittently heavy, but she is not soaking through pads. Denies current pain, dizziness, lightheadedness. Does admit to feeling fatigued recently. Related Data Allergies Allergy/AdvReac Type Severity Reaction Status Date / Time No Known Allergies Allergy Mild Verified 05/31/23 11:01 Review of Systems 2 Review of Systems: All systems reviewed & are unremarkable except as noted in HPI. All systems reviewed & are unremarkable except as noted in HPI and below PMFSH Past Medical History Medical History Irregular periods Family History Family History Grandparent Diabetes mellitus Hypertension Cerebrovascular accident Grandparent Hypertension Father Diabetes mellitus Social History Social History Smoking status: Never smoker Second hand tobacco smoke exposure: No Substance use: never Gender identity (if verbalized by the patient): Female Sexual Orientation (if Verbalized by the Patient): Straight or Heterosexual Spiritual care concerns: No Exam 2 Narrative: GENERAL: Well appearing, morbidly obese with BMI of 44.0, non-toxic, in no acute distress. HEAD: Normocephalic, atraumatic. ENT: Slight erythema to posterior pharynx. No tonsillar hypertrophy or exudate. Uvula midline. RESPIRATORY: Airway patent, respirations nonlabored. Clear to auscultation bilaterally, no rales, rhonchi, wheezing. No focal lung sounds. CARDIOVASCULAR: Regular rate and rhythm without murmurs, rubs, or gallops. MUSCULOSKELETAL: Moves all extremities. No gross deformities. SKIN: Warm, dry, normal color. NEURO: A&O X3. Speech clear. Cranial nerves II-XII grossly intact. Steady gait. No ataxic movements. PSYCHIATRIC: Appropriate mood and affect. Normal interaction. Course Vital Signs Vital signs: Vital Signs Temperature 97.9 F 06/12/25 17:37 Pulse Rate 105 H 06/12/25 17:37 Respiratory Rate 16 06/12/25 17:37 Blood Pressure 146/74 H 06/12/25 17:37 Pulse Oximetry 100 06/12/25 17:37 Oxygen Delivery Room Air 06/12/25 17:37 Temperature 97.6 F 06/12/25 20:41 Pulse Rate 80 06/13/25 00:48 Respiratory Rate 16 06/13/25 00:48 Blood Pressure 140/85 06/13/25 00:48 Pulse Oximetry 100 06/13/25 00:48 Oxygen Delivery Room Air 06/12/25 17:37 MDM - Female Genitourinary MDM Narrative Medical decision making narrative: Patient presented to ED with 2 day history of vaginal bleeding. Reporting some fatigue, denying dizziness or lightheadedness, current pain. History of irregular cycles. Laboratory studies with anemia. Hemoglobin of 8.1. No recent records to compare to. Normocytic. Discussed this with patient. Discussed starting iron supplementation. Discussed case with damian Davila senior occupational therapist, OK with starting low dose OCP to regulate bleeding, f/u in office. Patient is in agreement this plan. Also reporting 1 week history of URI symptoms. Has been around sick contacts. COVID, influenza, RSV, strep negative. Discussed likelihood of viral URI and continued management of such. No respiratory distress or compromise, systemic signs of infection to suggest need for further labs or imaging at this time. Patient safe for discharge home. Advised to monitor bleeding, given bleeding precautions, strict return precautions. She is in agreement with plan. Discharged in stable condition. Medical Records Attestation: I reviewed the patient's medical records. Lab Data Attestation: I reviewed the patient's lab results. 06/12/25 21:52 Labs: Lab Results 06/12/25 06/12/25 06/12/25 Range/Units 17:58 21:09 21:52 WBC 8.9 (4.5-10.0) K/mm3 RBC 3.28 L (4.2-5.4) M/mm3 Hgb 8.1 L D (12.0-15.0) g/dL Hct 27.2 L (37.0-47.0) % MCV 82.9 (80-100) fl MCH 24.7 L (26-34) pg MCHC 29.8 L (32-36) g/dl RDW 14.6 H (11.5-14.5) % Plt Count 422 H D (150-375) k/mm3 MPV 10.4 (7.4-10.4) fl Immature Gran % (Auto) 0.6 H (0-0.5) % Neut % (Auto) 52.2 (45.5-73.1) % Lymph % (Auto) 36.2 (18.3-44.2) % [place] % (Auto) 8.6 H (2.6-8.5) % Eos % (Auto) 1.2 (0-4.4) % Baso % (Auto) 1.2 (0.2-1.2) % Lymph # (Auto) 3.21 H (0.9-3.2) K/mm3 [place] # (Auto) 0.8 H (0.1-0.6) K/mm3 Eos # (Auto) 0.1 (0-0.3) K/mm3 Baso # (Auto) 0.1 (0.0-0.1) K/mm3 Abs Immat Gran (auto) 0.05 H (0.00-0.031) K/mm3 Absolute Neuts (auto) 4.6 (1.3-6.7) K/mm3 Absolute Nucleated RBC 0.000 (0.0-0.012) K/mm3 Nucleated RBC % 0.0 (0.0-0.2) % Urine Color Yellow (Yellow) Urine Appearance Clear (Clear) Urine pH 7.0 (5.0-9.0) Ur Specific [place] 1.013 (1.001-1.035) Urine Protein Negative (Negative) mg/dL Urine Glucose (UA) Negative (Negative) mg/dL Urine Ketones Negative (Negative) mg/dL Ur Blood (Man) Negative (Negative) Urine Nitrate Negative (Negative) Urine Bilirubin Negative (Negative) Urine Urobilinogen 1.0 (<2.0) mg/dL Add Ur Microanalysis Reviewed Leukocyte Esterase Rfl Trace H (Negative) ANA/UL Urine RBC 0-2 (0-2) /hpf Urine WBC 0-5 (0-3) /hpf Ur Squamous Epith Cells None seen (Few) /hpf Urine Bacteria None seen /hpf Urine Casts 0-2 POC Urine HCG, Qual (Negative) Influenza A (RT-PCR) Negative (Negative) Influenza B (RT-PCR) Negative (Negative) RSV (RT-PCR) Negative (Negative) SARS-CoV-2 RNA (RT-PCR) Negative (Negative) Group A Strep (PCR) Not detected (Negative) 06/12/25 Range/Units 22:03 WBC (4.5-10.0) K/mm3 RBC (4.2-5.4) M/mm3 Hgb (12.0-15.0) g/dL Hct (37.0-47.0) % MCV (80-100) fl MCH (26-34) pg MCHC (32-36) g/dl RDW (11.5-14.5) % Plt Count (150-375) k/mm3 MPV (7.4-10.4) fl Immature Gran % (Auto) (0-0.5) % Neut % (Auto) (45.5-73.1) % Lymph % (Auto) (18.3-44.2) % [place] % (Auto) (2.6-8.5) % Eos % (Auto) (0-4.4) % Baso % (Auto) (0.2-1.2) % Lymph # (Auto) (0.9-3.2) K/mm3 [place] # (Auto) (0.1-0.6) K/mm3 Eos # (Auto) (0-0.3) K/mm3 Baso # (Auto) (0.0-0.1) K/mm3 Abs Immat Gran (auto) (0.00-0.031) K/mm3 Absolute Neuts (auto) (1.3-6.7) K/mm3 Absolute Nucleated RBC (0.0-0.012) K/mm3 Nucleated RBC % (0.0-0.2) % Urine Color (Yellow) Urine Appearance (Clear) Urine pH (5.0-9.0) Ur Specific [place] (1.001-1.035) Urine Protein (Negative) mg/dL Urine Glucose (UA) (Negative) mg/dL Urine Ketones (Negative) mg/dL Ur Blood (Man) (Negative) Urine Nitrate (Negative) Urine Bilirubin (Negative) Urine Urobilinogen (<2.0) mg/dL Add Ur Microanalysis Leukocyte Esterase Rfl (Negative) ANA/UL Urine RBC (0-2) /hpf Urine WBC (0-3) /hpf Ur Squamous Epith Cells (Few) /hpf Urine Bacteria /hpf Urine Casts POC Urine HCG, Qual Negative (Negative) Influenza A (RT-PCR) (Negative) Influenza B (RT-PCR) (Negative) RSV (RT-PCR) (Negative) SARS-CoV-2 RNA (RT-PCR) (Negative) Group A Strep (PCR) (Negative) Discharge Plan Discharge Clinical Impression: Dysfunctional uterine bleeding Upper respiratory infection Qualifiers: URI type: unspecified URI Qualified Code(s): J06.9 - Acute upper respiratory infection, unspecified Anemia Qualifiers: Anemia type: unspecified type Qualified Code(s): D64.9 - Anemia, unspecified Patient Disposition: Home Condition: Stable Instructions: Antibiotic Form, Abnormal (Dysfunctional) Uterine Bleeding (ED), Dysmenorrhea (ED) Additional Instructions: Take oral control as prescribed. Follow-up with OBGYN for further evaluation. Call office to make appointment. Also recommend taking an iron supplementation for anemia. Return to the ED if you experience worsening or severe bleeding, severe pain, dizziness, lightheadedness, passing out, or any other symptoms of concern. Recommend [id number] cough and cold medicines for symptom relief, Delsym, Mucinex, DayQuil, NyQuil, Sudafed, Robitussin, TheraFlu. Patient Language: Hungarian Prescriptions: New levonorgestrel-ethinyl estrad [Lutera (28)] 0.1-20 mg-mcg tablet 1 tablet PO DAILY Qty: 168 0RF Follow-up/Referrals: Brandan Rm MD [Physician, ELECTRONIC PREPRESS OPERATOR] Referral Note: OBGYN PHYSICIAN,WIRE BORDER ASSEMBLER [Primary Care Provider, Internal Medicine] Time of Disposition: 00:34
[2025-06-12 22:05] LABS: BEDSIDEPREGUCG Negative (Negative)
[2025-06-12 22:16] LABS: Add Urine Microscopic? YES; Appearance Urine Clear (Clear); Glucose Urine UA Negative (Negative); Leukocyte Esterase Ur Trace LEU/UL (Negative); Need Manual Microscopic Reviewed; Nitrate Urine Negative (Negative); Non Pathogenic Casts 0-2; Specific Grav Ur 1.013 (1.001-1.035)
[2025-06-12 22:34] LABS: Hematocrit 27.2 % (37.0-47.0); Hemoglobin 8.1 g/dL (12.0-15.0); Immature Granulocyte Percent A 0.6 % (0-0.5); Lymphocytes Absolute Auto 3.21 K/mm3 (0.9-3.2); Mean Corpuscular HGB Conc 29.8 g/dl (32-36); Mean Corpuscular Hemoglobin 24.7 pg (26-34); Mean Corpuscular Volume 82.9 fl (80-100); Nucleated Red Blood Cells Absolute Auto 0.000 K/mm3 (0.0-0.012); Nucleated Red Blood Cells Perc 0.0 % (0.0-0.2); Platelet Count Result 422 k/mm3 (150-375); Red Blood Count 3.28 M/mm3 (4.2-5.4); White Blood Count 8.9 K/mm3 (4.5-10.0)
[2025-06-13 00:48] VITALS: BP 140/85; PULSE 80; RESP 16; O2SAT 100
[2025-06-13 01:29] LABS: Pregnancy On Board Control Positive
== END 2025-06-13 00:49 | disposition home or self-care (01) ==
PROVIDERS: Emergency Medicine; Emergency Provider Physician Assistant
DX: J06.9 Acute upper respiratory infection, unspecified (principal); N93.8 Other specified abnormal uterine and vaginal bleeding; D64.9 Anemia, unspecified; Z20.822 Contact with and (suspected) exposure to COVID-19
CPT/HCPCS: 36415; 81001; 81025; 85025; 87637; 87651; 99283

== ENCOUNTER 2025-08-28 17:35 | Emergency (ER) | payer BC, SELFPAY ==
[2025-08-28 17:45] VITALS: BP 122/85; PULSE 88; RESP 16; TEMP 36.3; O2SAT 100
--- NOTE | 2025-08-28 18:43 | ED.EAR ---
HPI - Ear Problem General Chief complaint: Ear Stated complaint: EARS CLOGGED Time Seen by Provider: 08/28/25 18:20 Source: patient and RN notes reviewed Mode of arrival: ambulatory Limitations: no limitations History of Present Illness HPI Narrative: 29-year-old female presents to the [facility] complaining of ears being clogged for 3 days. Patient has been trying Debrox over leave. Patient has a history of impacted cerumen. Patient denies any upper respiratory symptoms, fevers, or any other symptoms. Related Data Allergies Allergy/AdvReac Type Severity Reaction Status Date / Time No Known Allergies Allergy Mild Verified 05/31/23 11:01 Review of Systems Review of Systems: CONSTITUTIONAL: Denies fever, chills, or sweats. EYES: Denies visual changes, redness, or discharge. ENT: Denies rhinorrhea, congestion, sore throat, or otalgia. Positive for Clogged ears. CARDIOVASCULAR: Denies chest pain, palpitations, or edema. RESPIRATORY: Denies cough or dyspnea. GASTROINTESTINAL: Denies abdominal pain, nausea, vomiting, or diarrhea. GENITOURINARY: Denies dysuria or hematuria. SKIN: Denies rash or itching. MUSCULOSKELETAL: Denies back pain, joint pain, or myalgia. NEUROLOGIC: Denies headache, numbness, or weakness. PSYCHIATRIC: Denies anxiety or depression. All other systems reviewed are negative, except as documented in HPI. PMFSH Past Medical History Medical History Irregular periods Family History Family History Grandparent Diabetes mellitus Hypertension Cerebrovascular accident Grandparent Hypertension Father Diabetes mellitus Social History Social History Smoking status: Never smoker Second hand tobacco smoke exposure: No Substance use: never Gender identity (if verbalized by the patient): Female Sexual Orientation (if Verbalized by the Patient): Straight or Heterosexual Spiritual care concerns: No Comments At the time of my signature, I reviewed and agree with the nursing past medical, surgical, social, and family history. There is no relevant family history pertinent to the patient complaint. Exam Narrative: GENERAL: This is a well-nourished, well-developed adult, in no apparent distress. They are non ill-appearing, nontoxic appearing. HEAD: normocephalic, atraumatic. EYES: Sclera clear/white. Conjunctiva normal. Vision is grossly intact. Extraocular movements intact EARS: External ears normal, auditory canals with impacted cerumen bilaterally, unable to visualize TM. Hearing grossly intact. NOSE: External nose normal THROAT: Mucous membranes moist, NECK: Neck supple, CARDIOVASCULAR: Regular rate and rhythm RESPIRATORY: Respiratory rate normal, respiratory effort nonlabored, no respiratory distress SKIN: warm, Dry, intact with no suspicious lesions or rash, good texture and turgor. NEURO: awake, alert, and oriented to person, place and time. There were no obvious focal neurologic abnormalities. EXTREMITIES: No joint tenderness, effusion, or edema noted. BACK: Nontender without deformity. Course Course Level of Care: Express Care Visit Vital Signs Vital signs: Vital Signs Temperature 97.4 F L 08/28/25 17:45 Pulse Rate 88 08/28/25 17:45 Respiratory Rate 16 08/28/25 17:45 Blood Pressure 122/85 08/28/25 17:45 Pulse Oximetry 100 08/28/25 17:45 Temperature 97.4 F L 08/28/25 17:45 Pulse Rate 88 08/28/25 17:45 Respiratory Rate 16 08/28/25 17:45 Blood Pressure 122/85 08/28/25 17:45 Pulse Oximetry 100 08/28/25 17:45 Procedures Ear Wax Removal Both Ears: Ear Wax Removal Date: 08/28/25 Ear Wax Removal Time: 18:35 Cerumenolytic Used: other (Small amount Hydrogen peroxide) Results: Re-examined: cerumen removed completely TM Examination: TM(s) intact, normal appearance Ear Canal Exam: atraumatic Patient Tolerated Procedure: well Complications: no problems Technique: ear canal irrigated and ear canal curetted [facility] MDM Narrative Medical decision making narrative: Successful irrigation of her ears, patient reports improvement of symptoms, she reports improvement in hearing. Discussed supportive care. Will Refer to PCP. Discussed physical exam findings. Advised supportive measures and signs/symptoms to go to the ER. Pt is appropriate for outpt treatment and f/u. Differential Diagnosis Differential Diagnosis: Impacted cerumen, otitis media, otitis externa Critical Care Time Critical Care Time Critical Care Time: No Discharge Plan Discharge Clinical Impression: Bilateral impacted cerumen Patient Disposition: Home Condition: Stable Additional Instructions: Follow-up with PCP as needed. Patient Language: Pakistani Prescriptions: No Action levonorgestrel-ethinyl estrad [Lutera (28)] 0.1-20 mg-mcg tablet 1 tablet PO DAILY Qty: 168 0RF Follow-up/Referrals: PHYSICIAN,FISHER [Primary Care Provider, Internal Medicine] Paddy Jc MD [Physician, Family Practice] - 3 Days Time of Disposition: 18:41
== END 2025-08-28 18:43 | disposition home or self-care (01) ==
DX: H61.23 Impacted cerumen, bilateral (principal)
CPT/HCPCS: 69210; 99212; A9270; G0463